=== PATIENT | female | born 1970 | race Two or more races ===

== ENCOUNTER 2017-01-18 21:59 | Emergency (ER) | payer OTHER ==
[~2017-01-18] VITALS: Ht 167.6 cm; Wt 59.9 kg
[~2017-01-18 21:59] MED LIST: MAGN296S9 PO
[2017-01-18 22:10] VITALS: BP 130/60
[2017-01-18] MEDS ORDERED: HYDR-971 PO (23:57)
--- NOTE | 2017-01-19 01:33 | PHYS DOC ---
Past Medical History Past Medical History: Constipation, Diverticulosis Past Surgical History: Other Additional Past Surgical Histo: CYST REMOVED L. BREAST, TUMMY TUCK Alcohol Use: None Drug Use: None Adult General Chief Complaint Chief Complaint: FLANK PAIN HPI HPI Patient is a 46 year old female who presents with pain to her right ribs following a weight lifting injury. The patient states that she was lifting a very heavy amount of weight to the point that it popped a blood vessel in her right forearm. She felt pain in her left rib cage which has continued with no reduction since the injury one week ago. She has taken ibuprofen over-the- counter with limited success. Review of Systems Review of Systems Constitutional: Denies fever or chills [] Respiratory: Denies cough or shortness of breath [] Cardiovascular: No additional information not addressed in HPI [] GI: Denies abdominal pain, nausea, vomiting, bloody stools or diarrhea [] : Denies dysuria or hematuria [] Musculoskeletal: See history of present illness Integument: Denies rash or skin lesions [] Neurologic: Denies headache, focal weakness or sensory changes [] Endocrine: Denies polyuria or polydipsia [] All other systems were reviewed and found to be within normal limits, except as documented in this note. Allergies Allergies Allergies Coded Allergies Type Severity Reaction Last Updated Verified No Known Drug Allergies 10/24/15 No Physical Exam Physical Exam Constitutional: Well developed, well nourished, no acute distress, non-toxic appearance. [] Neck: Normal range of motion, no tenderness, supple, no stridor. [] Cardiovascular:Heart rate regular rhythm, no murmur [] Lungs & Thorax: Bilateral breath sounds clear to auscultation [] Abdomen: Bowel sounds normal, soft, no tenderness, no masses, no pulsatile masses. [] Skin: Warm, dry, no erythema, no rash. [] Back: Tenderness to right posterior ribs, no specific point tenderness noted, spine is painfree with no stepoffs, no CVA tenderness. [] Extremities: there is large, healing bruise to the patient's right forearm where the blood vessel popped when she was lifting the weights Neurologic: Alert and oriented X 3, normal motor function, normal sensory function, no focal deficits noted. [] Psychologic: Affect normal, judgement normal, mood normal. [] Current Patient Data Vital Signs Vital Signs Date Time Temp Pulse Resp B/P (MAP) Pulse Ox O2 Delivery O2 Flow Rate FiO2 01/18/17 22:10 98.7 93 20 130/60 (83) 99 Room Air 98.7 EKG EKG [] Radiology/Procedures Radiology/Procedures []There is no obvious fracture or deformity of the patient's ribs. Course & Med Decision Making Course & Med Decision Making Pertinent Labs and Imaging studies reviewed. (See chart for details) 1. Muscle strain The patient is being given a prescription for narcotic pain medication. She is to not drive or operate heavy machinery while taking this medication. She is to follow-up with her primary care provider in one week if not improving or return to the ED if worsening. A utilities and maintenance supervisor phone was used in the care of this patient. Dragon Disclaimer Dragon Disclaimer This electronic medical record was generated, in whole or in part, using a voice recognition dictation system. Departure Departure Impression: Primary Impression: Muscle strain of chest wall Disposition: HOME, SELF-CARE Condition: STABLE Patient Instructions: Muscle Strain Additional Instructions: Follow-up with your primary care provider in 3 days if not improving or return to the ED if worsening. You're being given a narcotic pain medication. Do not drive or operate heavy machinery while taking this medication. Scripts Hydrocodone/Apap 5-325 (NORCO 5-325 TABLET) 1 Each Tablet 1-2 TAB PO Q4-6HRS, #20 TAB Prov: MARTHA NUNN APRN 01/18/17 MARTHA NUNN APRN Jan 19, 2017 01:33
--- NOTE | 2017-01-19 08:12 | RAD ---
RIBS BILAT PA CXR 4+V History:persistent pain after weightlifting Comparison: None Findings:Single view of the chest and 4 additional views of the bilateral ribs are submitted. There is no pneumothorax, pleural fluid, infiltrate. Cardiac silhouette is within normal limits. No displaced rib fracture is identified. Impression: 1.No acute radiographic abnormality is identified.
== END 2017-01-18 23:59 | disposition home or self-care (01) ==
LOC: ER 21:59
DX: S29.011A Strain of muscle and tendon of front wall of thorax, initial encounter (principal); X50.9XXA Other and unspecified overexertion or strenuous movements or postures, initial encounter; Y93.89 Activity, other specified; Y99.8 Other external cause status; Y92.89 Other specified places as the place of occurrence of the external cause
CPT/HCPCS: 71111; 99284

== ENCOUNTER → 2017-11-05 | Outpatient (CLI) | payer OTHER ==
[~2017-11-05] MED LIST changes: +HYDR-971 PO
--- NOTE | 2017-11-05 08:51 | RAD ---
DATE: 11/05/2017 EXAM: DIGITAL SCREEN BILAT W/CAD HISTORY: Routine screening COMPARISON: 03/31/2015 This study was interpreted with the benefit of Computerized Aided Detection (CAD). Breast Density: HETERO The breast parenchyma is heterogenously dense, which could reduce sensitivity of mammography. Breast parenchyma level C. FINDINGS: Routine and implant exclusion views of both breasts were obtained. The bilateral breast implants appear unchanged. No new or enlarging breast densities are seen. Minimal benign type calcification is present. No suspicious microcalcifications have developed. IMPRESSION: Stable mammograms without evidence of malignancy. BI-RADS CATEGORY: 2 BENIGN FINDING(S) RECOMMENDED FOLLOW-UP: 12M 12 MONTH FOLLOW-UP PQRS compliance statement: Patient information was entered into a reminder system with a target due date for the next mammogram. Mammography is a sensitive method for finding small breast cancers, but it does not detect them all and is not a substitute for careful clinical examination. A negative mammogram does not negate a clinically suspicious finding and should not result in delay in biopsying a clinically suspicious abnormality. "Our facility is accredited by the [employer] Mammography Program."
== END | disposition home or self-care (01) ==
LOC: MAMMO 08:12
PROVIDERS: ATTEND Family Medicine
DX: Z12.31 Encounter for screening mammogram for malignant neoplasm of breast (principal); Z80.3 Family history of malignant neoplasm of breast
CPT/HCPCS: 77067